=== PATIENT | female | born 1960 | race African-American/Black ===

== ENCOUNTER 2023-08-27 07:06 | Emergency (ER) | payer OTHER ==
[~2023-08-27] VITALS: Ht 162.6 cm; Wt 72.6 kg
[2023-08-27 07:15] VITALS: BP 92/59; PULSE 88; RESP 16; TEMP 97.4; O2SAT 98
[2023-08-27] MEDS: ONDANSETRON 4 MG ODT PO ONE (07:47)
[2023-08-27] MEDS: ALUMINUM HYD/MAG/SIMETHICONE 30 ML UDC PO ONE (07:47)
[2023-08-27] MEDS ORDERED: CEPH-588 PO (07:56)
[2023-08-27] MEDS ORDERED: MIRABULK PO (07:57)
[2023-08-27] MEDS: ACETAMINOPHEN EXTRA STRENGTH 500 MG TAB PO ONE (08:13)
[2023-08-27] MEDS: cephALEXin 500 MG CAP PO ONE (08:13)
[2023-08-27] MEDS ORDERED: ALUM355S59 PO (08:21)
[2023-08-27 08:39] VITALS: BP 132/56; PULSE 80; RESP 18; TEMP 97.3; O2SAT 99
== END 2023-08-27 08:40 | disposition home or self-care (01) ==
LOC: MED 07:06
DX: R10.13 Epigastric pain (principal); R11.2 Nausea with vomiting, unspecified; H54.8 Legal blindness, as defined in USA
CPT/HCPCS: 99284; Q0162